=== PATIENT | male | born 1955 | race Caucasian/White ===

== ENCOUNTER 2016-12-27 13:08 | Emergency (ER) | payer SELFPAY ==
[~2016-12-27] VITALS: Ht 165.1 cm; Wt 123.4 kg
[~2016-12-27 13:08] MED LIST: AGGRENOX PO; AGGRENOX1 CAP PO; ALPRAZOLAM PO; ALPRAZOLAM0.25 MG PO; AMITRIPTYLINE H25 MG PO; AMLODIPINE BESYL5 MG PO; AMPICILLIN PO; ASPIRIN PO; ATORVASTATIN CA40 MG PO; AVANDIA PO; CARAFATE1 G PO; CARVEDILOL25 MG PO; CELEXA PO; CLEOCIN HCL150 MG PO; CLOPIDOGREL BIS75 MG PO; CRESTOR PO; EFFEXOR PO; EFFEXOR75 M1 PO; FISH OIL 1,0001 CAP PO; FISH OIL500 M2 PO; FISH OIL500 MG PO; FOLIC ACID PO; GABAPENTIN600 MG PO; GLUCOTROL10 MG PO; GLYBURIDE PO; HUMALOG100 U/ML; HUMULIN N100 U/ML SUBQ; HYDROCODON-ACE1 EAC5 PO; HYDROCODONE-APA1 T43 PO; IMDUR-ER60 M1 PO; ISOSORBIDE MONO30 MG PO; LANTUS100 UNITS/ SUBQ; LASIX PO; LISINOPRIL PO; LOPID600 MG PO; LOPRESSOR PO; LORTAB 101 TAB 10/5 PO; LORTAB 7.5-5001 TAB PO; METFORMIN PO; NEURONTIN600 MG PO; NIACIN500 M2 PO; NITROGLYGERIN0.4 MG SL; NITROSTAT0.4 MG SL; NOVOLIN 70/30 V10 M1 SQ; NOVOLOG100 U/M1 SUBQ; NPH INSULIN SUBQ; OMEGA 3 PO; PANTOPRAZOLE SO40 MG PO; PERCOCET PO; PLETAL100 MG PO; PROAIR RESPICL90 MCG INH; PROTONIX PO; REGLAN10 MG PO; TRAZODONE HCL100 MG PO; TRAZODONE PO; VIBRAMYCIN100 M1 PO; ZESTRIL40 MG PO; ZINC SULFATE PO; ZINC SULFATE220 M1 PO; ZOCOR PO; [UNRECOGNIZED DRUG - REMARK]
[2016-12-27] MEDS ORDERED: BENTYL20 MG PO (13:52)
[2016-12-27] MEDS ORDERED: COL-RITE250 MG PO (13:53)
[2016-12-27] MEDS ORDERED: ZESTRIL40 MG PO (13:54)
[2016-12-27] MEDS ORDERED: TESTOSTERO100 MG/1 M IM (13:56)
== END 2016-12-27 14:02 | disposition home or self-care (01) ==
LOC: SED 13:08
DX: M25.512 Pain in left shoulder (principal); G89.29 Other chronic pain; E11.9 Type 2 diabetes mellitus without complications; I10 Essential (primary) hypertension; E78.5 Hyperlipidemia, unspecified; Z98.890 Other specified postprocedural states
CPT/HCPCS: 99283